=== PATIENT | female | born 1985 | race Hispanic/Latino ===

== ENCOUNTER 2023-10-06 15:43 | Emergency (ER) | payer OTHER ==
[~2023-10-06] VITALS: Ht 152.4 cm; Wt 77.1 kg
[2023-10-06 16:53] VITALS: BP 109/65; PULSE 76; RESP 18; O2SAT 99
[2023-10-06 16:55] LABS: BASOPHILS # (AUTO) 0.03 K/uL (0.00-0.20); BASOPHILS % (AUTO) 0.3 % (0.0-5.0); EOSINOPHILS # (AUTO) 0.17 K/uL (0.00-0.70); EOSINOPHILS % (AUTO) 1.5 % (0.0-8.0); HEMATOCRIT 34.9 % (36-48); IMMATURE GRANULOCYTE ABSOLUTE 0.09 K/uL (0-1); LYMPHOCYTES # (AUTO) 2.1 K/uL (1.0-4.8); LYMPHOCYTES % (AUTO) 17.5 % (21.0-51.0); MEAN CORPUSCULAR HEMOGLOBIN 31.4 pg (27.0-33.0); MEAN CORPUSCULAR HGB CONC 34.4 g/dL (32.0-36.0); MEAN CORPUSCULAR VOLUME 91.4 fL (79-99); MONOCYTES # (AUTO) 0.7 K/uL (0.1-1.0); MONOCYTES % (AUTO) 5.6 % (3.0-13.0); NEUTROPHILS # (AUTO) 8.7 K/uL (1.8-7.7); NEUTROPHILS % (AUTO) 74.3 % (40.0-77.0); PLATELET COUNT (AUTO) 253 K/uL (130-400); RED BLOOD CELL COUNT(AUTO) 3.82 MIL/uL (4.00-5.50); WHITE BLOOD COUNT (AUTO) 11.7 K/uL (4.8-10.8)
[2023-10-06 17:09] LABS: CREATININE 0.4 mg/dL (0.5-1.0); POTASSIUM 3.9 mmol/L (3.5-5.1)
[2023-10-06 17:14] LABS: ALBUMIN 2.7 g/dL (3.5-5.0); BILIRUBIN,TOTAL 0.2 mg/dL (0.2-1.0)
[2023-10-06] MEDS: 0.9%NACL 1000ML 1,000 ML IV ONE (18:31)
[2023-10-06] MEDS: METOCLOPRAMIDE 10 MG/2 ML VIAL IVP ONE (18:32)
[2023-10-06] MEDS: MECLIZINE HCL 25 MG TABLET PO ONE (18:32)
[2023-10-06] MEDS: FAMOTIDINE 20MG VIAL IV ONE (18:32)
[2023-10-06 18:51] LABS: APPEARANCE,URINE CLOUDY (CLEAR); BILIRUBIN,URINE NEGATIVE (NEGATIVE); COLOR,URINE YELLOW (YELLOW); GLUCOSE, URINE (UA) NEGATIVE (NEGATIVE); KETONES,URINE >=80 mg/dL (NEGATIVE); LEUKOCYTE ESTERASE ,URINE 250 Leu/uL (NEGATIVE); NITRATE,URINE NEGATIVE (NEGATIVE); OCCULT BLOOD,URINE NEGATIVE (NEGATIVE); PH,URINE 5.5 (5.0-8.0); PROTEIN,URINE 20 mg/dL (NEGATIVE); UROBILINOGEN,URINE 0.2 mg/dL (0.2-1.0)
[2023-10-06 18:52] LABS: ADD UA MICROSCOPIC YES
[2023-10-06 18:54] LABS: BACTERIA,URINE MOD /HPF (None Seen); MUCUS,URINE RARE LPF (None Seen); SQUAMOUS EPITHELIAL CELL,UR MOD /HPF (0-2); UNCLASSIFIED CRYSTAL 1 /HPF (None Seen); YEAST,URINE BUDDING RARE /HPF (None Seen)
[2023-10-06] MEDS: CEFTRIAXONE 1G VIAL IVPB ONE (19:37)
[2023-10-06] MEDS ORDERED: CEFD300C3 PO (20:10)
[2023-10-06] MEDS ORDERED: ONDA4TAB10 PO (20:10)
== END 2023-10-06 20:25 | disposition home or self-care (01) ==
LOC: EDH 15:43
DX: O23.42 Unspecified infection of urinary tract in pregnancy, second trimester (principal); Z3A.22 22 weeks gestation of pregnancy; Z98.890 Other specified postprocedural states
CPT/HCPCS: 99284; 96365; 96375; 96361; 84484; 80053; 85025; 87088; 81001; 36415; 93005; J3490; J7030; J0696; J2765

== ENCOUNTER 2024-01-26 22:56 | Inpatient (IN) | payer MEDICAID, OTHER ==
[~2024-01-26] VITALS: Ht 152.4 cm; Wt 82.6 kg
[~2024-01-26 22:56] MED LIST: CEFD300C3 PO; ONDA-243 PO
[2024-01-26 23:44] LABS: HEMATOCRIT 31.6 % (36-48); MEAN CORPUSCULAR HEMOGLOBIN 29.3 pg (27.0-33.0); MEAN CORPUSCULAR HGB CONC 34.2 g/dL (32.0-36.0); MEAN CORPUSCULAR VOLUME 85.6 fL (79-99); RED BLOOD CELL COUNT(AUTO) 3.69 MIL/uL (4.00-5.50); RED CELL DISTRIBUTION WIDTH 14.3 % (11.0-15.5); WHITE BLOOD COUNT (AUTO) 9.6 K/uL (4.8-10.8)
[2024-01-26 23:56] LABS: CREATININE 0.7 mg/dL (0.5-1.0); POTASSIUM 4.3 mmol/L (3.5-5.1)
[2024-01-26 23:58] LABS: INR <= 0.93 (0.85-1.15); PROTHROMBIN TIME 10.1 SEC (9.6-11.6)
[2024-01-26 23:59] LABS: PARTIAL THROMBOPLASTIN TIME 23.8 SEC (26.3-35.5)
[2024-01-27] MEDS ORDERED: AMPICILLIN 1GM+NS 50ML IV ONE
[2024-01-27] MEDS ORDERED: AMPICILLIN 2GM+NS 100ML IV ONE
[2024-01-27 00:01] LABS: ALBUMIN 2.4 g/dL (3.5-5.0); BILIRUBIN,TOTAL 0.2 mg/dL (0.2-1.0); URIC ACID 6.1 mg/dL (2.6-7.2)
[2024-01-27] MEDS: LACTATED RINGERS 1000ML 1,000 ML IV SCH (00:20)
[2024-01-27] MEDS: CEFAZOLIN SODIUM 2 GM VIAL IVPB PRN (00:20)
[2024-01-27 00:25] LABS: HIV 1&2 ANTIBODY Non-Reactive (Negative); HIV-1 p24 Antigen Non-Reactive (Negative)
[2024-01-27 00:29] LABS: FIBRINOGEN 542 mg/dL (180-350)
[2024-01-27] MEDS ORDERED: CALDOLOR 800MG+NS 250ML 250 ML IV PRN (04:30)
[2024-01-27] MEDS ORDERED: MORPHINE PF 100MG/10ML AMP IV ONE (07:11)
[2024-01-27] MEDS: CEFAZOLIN SODIUM 2 GM VIAL IVPB ONE (07:17)
[2024-01-27] MEDS ORDERED: EPHEDRINE SULFATE 50 MG/ML AMPULE ONE (07:26)
[2024-01-27 10:05] VITALS: BP 116/76; PULSE 71; RESP 20
[2024-01-27] MEDS ORDERED: 0.9%NACL 10ML VIAL IVP PRN (11:00)
[2024-01-27] MEDS ORDERED: MEPERIDINE-PF 75 MG/ML SYG IM PRN (11:00)
[2024-01-27] MEDS ORDERED: PROMETHAZINE HCL 25 MG/ML 1ML AMPULE IM PRN (11:00)
[2024-01-27] MEDS ORDERED: PREN1TAB80 PO (11:17)
[2024-01-27] MEDS ORDERED: LEVO50CA4 PO (11:17)
[2024-01-27 12:00] VITALS: BP 119/79; PULSE 74; RESP 20
[2024-01-27] MEDS: OXYTOCIN-LR 30 UNITS/500ML 500 ML IV ONE (14:42)
[2024-01-27 15:30] VITALS: BP 100/63; PULSE 70; RESP 18
[2024-01-27] MEDS: CALDOLOR 800MG+NS 250ML 250 ML IV SCH (16:27)
[2024-01-27 19:20] VITALS: BP 104/72; PULSE 77; RESP 18
[2024-01-27] MEDS: DEXTROSE 5 %-0.45 % NACL 1,000 ML IV PRN (22:11)
[2024-01-27 23:35] VITALS: BP 109/59; PULSE 83; RESP 18
[2024-01-28] MEDS ORDERED: DIPHENHYDRAMINE HCL 25 MG CAPSULE PO PRN (01:00)
[2024-01-28] MEDS ORDERED: HYDROCODONE/ACETAMINOPHEN 5/325 MG TAB PO PRN (01:00)
[2024-01-28] MEDS ORDERED: ACETAMINOPHEN 500 MG TABLET PO PRN (01:00)
[2024-01-28] MEDS ORDERED: LANOLIN 30GM OINTMENT TP PRN (01:00)
[2024-01-28 03:40] VITALS: BP 101/54; PULSE 82; RESP 20
[2024-01-28] MEDS: DIPH,PERTUSS(ACELL),TET VAC/PF 0.5 ML VIAL IM SCH (04:26)
[2024-01-28 06:34] LABS: HEMATOCRIT 27.2 % (36-48); MEAN CORPUSCULAR HEMOGLOBIN 29.2 pg (27.0-33.0); MEAN CORPUSCULAR HGB CONC 33.8 g/dL (32.0-36.0); MEAN CORPUSCULAR VOLUME 86.3 fL (79-99); RED BLOOD CELL COUNT(AUTO) 3.15 MIL/uL (4.00-5.50); RED CELL DISTRIBUTION WIDTH 14.6 % (11.0-15.5); WHITE BLOOD COUNT (AUTO) 9.6 K/uL (4.8-10.8)
[2024-01-28] MEDS: LEVOTHYROXINE 50 MCG TABLET PO SCH (06:41)
[2024-01-28 07:15] VITALS: BP 108/60; PULSE 84; RESP 20
[2024-01-28] MEDS: SIMETHICONE 80 MG TAB.CHEW PO PRN (08:45)
[2024-01-28] MEDS: IBUPROFEN 800 MG TAB PO SCH (08:45)
[2024-01-28] MEDS: DOCUSATE SODIUM 100 MG CAP PO SCH (08:45)
[2024-01-28] MEDS ORDERED: BISACODYL 10 MG SUPP.RECT RC PRN (09:00)
[2024-01-28 11:20] VITALS: BP 102/55; PULSE 83; RESP 20
[2024-01-28] MEDS: ACETAMINOPHEN WITH CODEINE 1 TAB TAB PO PRN (11:36)
[2024-01-28 15:30] VITALS: BP 106/69; PULSE 80; RESP 18
[2024-01-28] MEDS ORDERED: LEVO75CA5 PO (18:34)
[2024-01-28 19:17] VITALS: BP 118/73; PULSE 87; RESP 20
[2024-01-28 23:47] VITALS: BP 103/69; PULSE 89; RESP 20
[2024-01-29 03:30] VITALS: BP 121/72; PULSE 84; RESP 20
[2024-01-29] MEDS: LEVOTHYROXINE 75 MCG TABLET PO SCH (06:34)
[2024-01-29 07:50] VITALS: BP 113/70; PULSE 79; RESP 18
[2024-01-29 11:40] VITALS: BP 115/72; PULSE 88; RESP 18
[2024-01-29 13:18] LABS: RAPID PLASMA REAGIN NONREACTIVE (NONREACTIVE)
[2024-01-29 16:00] VITALS: BP 129/83; PULSE 82; RESP 20
== END 2024-01-29 17:25 | disposition home or self-care (01) | DRG 788 ==
LOC: EDH 22:56 → OBSVTOIN 22:57 → LDH 22:57 → WSH 01-27 10:04
PROVIDERS: ADMIT Obstetrics & Gynecology; ATTEND Obstetrics & Gynecology
PROC: 10D00Z1 Extraction of Products of Conception, Low, Open Approach (ICD-10-PCS; principal; 2024-01-27 07:30)
DX: O99.284 Endocrine, nutritional and metabolic diseases complicating childbirth (principal); O34.211 Maternal care for low transverse scar from previous cesarean delivery; Z37.0 Single live birth; Z3A.38 38 weeks gestation of pregnancy; E03.9 Hypothyroidism, unspecified
CPT/HCPCS: 36415; 59510; 80053; 84550; 85027; 85384; 85610; 85730; 86592; 86701; 86850; 86900; 86901; 87340; 87390; 90715; A4344; G0378; J1741; J2274; J3490; J7120; A4248; A4649; C1765; J0690